=== PATIENT | female | born 1985 | race Two or more races ===

== ENCOUNTER → 2017-06-30 | Outpatient (CLI) | payer BC | LOC: FIMAGING 09:19 | PROVIDERS: ATTEND Obstetrics & Gynecology | DX: O09.812 Supervision of pregnancy resulting from assisted reproductive technology, second trimester (principal); O30.042 Twin pregnancy, dichorionic/diamniotic, second trimester; O09.292 Supervision of pregnancy with other poor reproductive or obstetric history, second trimester; Z3A.24 24 weeks gestation of pregnancy ==

== ENCOUNTER → 2017-07-28 | Outpatient (CLI) | payer BC | LOC: FIMAGING 09:47 | PROVIDERS: ATTEND Obstetrics & Gynecology | DX: O09.813 Supervision of pregnancy resulting from assisted reproductive technology, third trimester (principal); O30.043 Twin pregnancy, dichorionic/diamniotic, third trimester; Z3A.28 28 weeks gestation of pregnancy; Z98.891 History of uterine scar from previous surgery ==

== ENCOUNTER → 2017-08-25 | Outpatient (CLI) | payer BC | LOC: FIMAGING 09:35 | PROVIDERS: ATTEND Obstetrics & Gynecology | DX: O30.043 Twin pregnancy, dichorionic/diamniotic, third trimester (principal); O36.5931 Maternal care for other known or suspected poor fetal growth, third trimester, fetus 1; O09.813 Supervision of pregnancy resulting from assisted reproductive technology, third trimester; Z3A.32 32 weeks gestation of pregnancy ==

== ENCOUNTER 2017-09-16 09:51 | Day surgery (SDC) | payer BC ==
--- NOTE | 2017-09-16 13:41 | OBPROG ---
Labor Progress Note Assessment/Plan: Assessment: 32 y/o with Di-Di TIUP @ 35 2/7 weeks who presents for NST IUGR twin A IHCP Thrombocytopenia Plan: NST reactive x 2; Cat I tracing x 2 Continue twice weekly NSTs Cont weekly PIH labs - uric acid trending up and platelets trending down PLT now 77; pt to start Prednisone per MFM MFM follow-up 09/18 for timing of delivery and tx thrombocytopenia 09/16/17 14:01 - Contraction Pattern Assessment Current Contraction Pattern: Other (Specify) (uterine irritability) - FHR Assessment Twin A FHR (bpm): 140 FHR Pattern Variability: Moderate FHR Category: 1 Twin B FHR (bpm): 130 FHR Pattern Variability: Moderate FHR Category: 1 Oxytocin Orders Assessment - Pre-Induction/Augmentation Assessment Gestational Age: 35 week(s) and 2 day(s) ICD10 Worksheet Patient Problems: Problems Problem Status Onset Dichorionic diamniotic twin in third trimester Acute Intrauterine growth restriction (IUGR) affecting care of mother Acute Cholestasis during Acute Thrombocytopenia affecting Acute - ICD10 Problem Qualifiers (1) Dichorionic diamniotic twin in third trimester (2) Intrauterine growth restriction (IUGR) affecting care of mother Qualifiers: Fetus number: fetus 1 of multiple gestation Trimester: third trimester Qualified Code(s): O36.5931 - Maternal care for other known or suspected poor growth, third trimester, fetus 1 (3) Cholestasis during (4) Thrombocytopenia affecting
== END 2017-09-16 13:37 | disposition home or self-care (01) ==
LOC: FOBOP 09:51 → UNDOADMOB 09:51 → FLD 09:51 → FOBOP 13:37 → EDSTATUS 15:44
PROVIDERS: ATTEND Obstetrics & Gynecology
DX: O30.043 Twin pregnancy, dichorionic/diamniotic, third trimester (principal); Z3A.35 35 weeks gestation of pregnancy; O36.5931 Maternal care for other known or suspected poor fetal growth, third trimester, fetus 1

== ENCOUNTER 2017-09-23 | Observation (INO) | payer BC | END 2017-09-23 10:35 | disposition home or self-care (01) | PROVIDERS: ADMIT Advanced Practice Midwife | DX: O47.03 False labor before 37 completed weeks of gestation, third trimester (principal); Z3A.36 36 weeks gestation of pregnancy ==